=== PATIENT | male | born 1960 | race Caucasian/White ===

== ENCOUNTER 2019-06-23 14:50 | Day surgery (SDC) | payer MEDICARE, SELFPAY ==
[2019-06-18 13:16] VITALS: BMI 43.7
[2019-06-23] VITALS (8 sets, daily range): BP systolic 121–140; BP diastolic 81–98; PULSE 75–89; RESP 10–16; TEMP 36.2–36.8; O2SAT 94–98; BMI 43.0
--- NOTE | 2019-06-23 17:29 | SUR.PREOP ---
Explained delay to patient and apologized. Patient verbalizes understanding. This nurse retrieved Hydrocodone RX from pharmacy for patient and placed medication in safekeeping bag. Per surgeon, patient may take his home dose of gabapentin now since delay in surgery. Turned lights down for comfort, warm blanket provided and call light within reach. Instructed to call if any needs at this time.
--- NOTE | 2019-06-23 17:52 | PM.PREOP ---
Pre-operative Note Interval Note History & Physical reviewed/Exam performed by Physician: Yes Changes to H&P: No
--- NOTE | 2019-06-23 17:52 | PM.OP.1 ---
Operative Date/Time/Diagnoses Date of procedure: 06/23/19 Time of procedure: 19:08 Pre-op diagnosis: Internal derangement right knee Post-op diagnosis: other (Lateral meniscal tear right knee) Procedure & Clinicians Procedure: Right knee arthroscopy with partial lateral meniscectomy Same procedure as scheduled: Yes Indications: The patient presents today for right knee arthroscopy after failure of conservative treatment. The nature of the procedure including the risks and benefits, alternatives, postoperative course and expected outcome were discussed and all questions answered. Consent was obtained. Operative site confirmed and marked. Surgeon: Modesto Jose Click Yes if Unassisted: Yes Anesthesia Type: General and Local Operative Notes Findings: Examination under anesthesia was unremarkable. Arthroscopic evaluation revealed degenerative tearing of the anterior horn lateral meniscus. This was debrided to a stable rim with a shaver. The medial meniscus was pristine with no tearing. There was no significant chondromalacia in any of the compartments. Patellar tracking was normal. ACL and PCL were intact. No loose bodies or other abnormalities noted. Closure Type: primary Specimen(s): none sent Estimated Blood Loss (mL): 1 Blood products transfused: none Tourniquet time (min): 15 Procedure in detail: The patient was taken to the operative suite and given prophylactic antibiotics. Examination under anesthesia was performed. The leg was then prepped and draped in usual sterile fashion. The leg was exsanguinated with an Esmarch dressing and the tourniquet raised to 300 torr. The portal sites were anesthetized with 1% lidocaine with epinephrine and then established with an 11 blade. Medial and lateral parapatellar working portals were utilized. The scope was placed into the medial portal and into the lateral compartment of the knee. The knee was placed in the figure 4 position. The knee was then allowed to hang down at 90? and the notch evaluated. The knee was then extended and the scope switched to the lateral portal and placed up in the anterior compartment. The patellofemoral joint, medial gutter, lateral gutter and suprapatellar pouch were inspected. A valgus force was then placed across the knee over lateral stress post and the medial compartment was evaluated. See specific findings and procedures above. The arthroscopy was completed and the knee drained. The knee was filled with 30 mL of 0.5% ropivacaine and 4 of morphine. The portal sites were closed with Steri-Strips. A sterile gauze and Neil wrap dressing was applied. The patient tolerated procedure well and was returned to recovery room in good condition. Complications: none Post-operative Condition: stable Disposition: PACU Plan for aftercare: Discharge to home. Progress weight-bearing and activity as tolerated. May change dressing in 3-4 days period
[2019-06-23] MEDS: CEFAZOLIN 2 GM/100 ML FROZ.PIGGY IV (18:23)
--- NOTE | 2019-06-23 18:58 | SUR.OPER ---
Supine on padded OR bed, head on pillow, arms secured on padded arm boards at <90 degrees abduction, legs uncrossed, safety belt at thigh, tape over blanket over lower legs.
--- NOTE | 2019-06-23 18:58 | SUR.OPER ---
Supine on padded OR bed, head on pillow, arms secured on padded arm boards at <90 degrees abduction, legs uncrossed, safety belt at abdomen, tape over blanket over left lower leg, right leg in sterile field.
[2019-06-23] MEDS: ROPIVACAINE 0.5% PF 5 MG/ML 20ML VIAL 10 ML INJ (19:23)
[2019-06-23] MEDS: LIDOCAINE 1% W/EPI 20 ML INJ (19:23)
--- NOTE | 2019-06-23 20:17 | SUR.PHASEII ---
Patient discharged home with friend, Elio, in stable condiition. Patient ambulatory at discharge but patient wheeled to vehicle per protocol. Denies pain at discharge. All belongings returned to patient. VSS.
== END 2019-06-23 20:05 | disposition home or self-care (01) ==
PROVIDERS: PCP Family Medicine; Referring Provider Family Medicine; Visit Provider Orthopaedic Surgery
PROC: (CPT 29870; principal; 2019-06-23 16:45)
DX: S83.281A Other tear of lateral meniscus, current injury, right knee, initial encounter (principal); M17.12 Unilateral primary osteoarthritis, left knee
CPT/HCPCS: 29881; J0690; J2250; J2405; J2704; J3010

== ENCOUNTER → 2020-04-24 15:19 | Outpatient (CLI) | payer MEDICARE, SELFPAY ==
[2020-04-24 17:36] LABS: COVID19 -Nasal RAPID Negative (Negative)
== END ==
PROVIDERS: PCP Family Medicine; Visit Provider Physician Assistant
DX: Z11.59 Encounter for screening for other viral diseases (principal)
CPT/HCPCS: 87635

== ENCOUNTER 2020-04-26 06:17 | Day surgery (SDC) | payer MEDICARE, SELFPAY ==
[2020-04-24 11:49] VITALS: BMI 43.7
[2020-04-26] VITALS (16 sets, daily range): BP systolic 115–141; BP diastolic 73–99; PULSE 91–111; RESP 12–93; TEMP 35.9–36.7; O2SAT 16–96; BMI 43.7
[2020-04-26] MEDS: ACETAMINOPHEN 325 MG TABLET 975 MG PO (07:11)
[2020-04-26] MEDS: PREGABALIN 75 MG CAPSULE PO (07:13)
[2020-04-26] MEDS: CELECOXIB 200 MG CAPSULE PO (07:15)
[2020-04-26] MEDS: LACTATED RINGERS 1,000 ML 42 ML IV (07:30)
--- NOTE | 2020-04-26 07:30 | PM.PREOP ---
Pre-operative Note COVID-19 COVID-19 status: Negative Result date/Date tested (Pos, Neg/Pending): 04/24/20 Interval Note History & Physical reviewed/Exam performed by Physician: Yes Changes to H&P: No
--- NOTE | 2020-04-26 07:31 | P.OP_ITS ---
Operative Date/Time/Diagnoses Date of procedure: 04/26/20 Time of procedure: 08:51 Pre-op diagnosis: Left knee medial compartment osteoarthritis Post-op diagnosis: same Procedure & Clinicians Procedure: Left knee medial compartment arthroplasty Same procedure as scheduled: Yes Indications: The patient presents today for medial compartment knee arthroplasty after failure of conservative treatment. The nature of the procedure including the risks and benefits, alternatives, postoperative course and expected outcome were discussed and all questions answered. Consent was obtained. Operative site confirmed and marked. Surgeon: Modesto Jose Television Service Engineer: Donald Henderson Anesthesia Type: General and Local Operative Notes Closure Type: primary Specimen(s): none sent Prosthetic devices, grafts, tissues, transplants, or devices: George and nephew ZUK unicompartmental knee, D femur, 3 tibia and 10 mm polyethylene tray. Applied: implant(s) Estimated Blood Loss (mL): 5 Blood products transfused: none Tourniquet time (min): 45 Procedure in detail: The patient was taken to the operative suite and placed under general anesthesia. The patient received prophylactic antibiotics 1 g of IV tranexamic acid prior to surgery. The lateral aspect of the leg was prepped and the knee injected with 20 mL of 1% lidocaine with epinephrine. The leg was prepped and draped in usual sterile fashion. The leg was exsanguinated with an Esmarch dressing and the tourniquet raised to 250 torr. A 10 cm medial parapatellar incision and arthrotomy was then made. The anterior aspect of the fat pad and medial meniscus was resected. A small amount of anterior tibial boss was resected with a oscillating saw. The knee was then extended and the alignment guide placed. The distal femoral and proximal tibial cutting guides were then pinned into place. The distal femoral cut was made in extension. The proximal tibial cut was made in flexion. All remaining meniscus was excised. Gaps were checked with blocks. Soft tissues were then injected with a combination of 40 mL of quarter percent Marcaine with epinephrine, 20 mL of Exparel. The femur was sized and the appropriate cutting guide placed. The peg holes were drilled and chamfer cuts made. Next the tibia was sized and drilled. Trial components were then placed. The knee had good cheondoism of soft tissue tension without over correction. Range of motion was full. The trial components were removed. The knee was cleansed with Pulsavac irrigation and dried. The components were then cemented with high viscosity vacuum mixed bone cement. The knee was held in extension until the cement had adequately cured. The knee was then irrigated and inspected for any further debris. The extensor mechanism was closed at 90? of flexion with a few interrupted #1 Vicryl sutures and a running O V-LOC suture. The knee was then filled with 50 mL of solution containing 1 g of tranexamic acid and 10 mL of 0.5% Marcaine. The subcutaneous tissue was closed with 2-0 Vicryl. The skin was closed with a running 3 0 V-LOC suture and surgical adhesive. An Aquacel dressing was applied. The leg was then wrapped with an Neil which will be kept on for the first 24 hours. The patient tolerated the procedure well and was returned to recovery room in good condition. Complications: none Post-operative Condition: stable Disposition: PACU Plan for aftercare: Discharge to home. Start physical therapy within 1 week. Follow up in 2 weeks.
[2020-04-26] MEDS: CEFAZOLIN 2 GM/100 ML FROZ.PIGGY IV (07:49)
--- NOTE | 2020-04-26 07:50 | SUR.PREOP ---
Block start time 0740] . Monitoring initiated and maintained throughout procedure. Oxygen given and medications given by anesthesiologist. iPatient remained stable throughout procedure, no adverse reactions noted. Block end time [0745].
[2020-04-26] MEDS: LIDOCAINE 1% W/EPI 20 ML INJ (08:01)
[2020-04-26] MEDS: TRANEXAMIC ACID 1,000 MG VIAL 1000 MG IV (08:02)
--- NOTE | 2020-04-26 08:16 | SUR.OPER ---
Supine on padded OR bed. Pillow under head, arms secured on padded armboards <90 degree abduction. Safety belt across torso. Non-operative leg secured with tape over blanket over lower leg. Operative leg secured in DeMayo/Yann positioner. Foam padded brace at thigh of operative leg.
--- NOTE | 2020-04-26 08:16 | SUR.OPER ---
Gel bump under left hip
[2020-04-26] MEDS: BUPIVACAINE 0.5% W/ EPI (PF) 20 ML, BUPIVACAINE LIPOSOME 266 MG, SODIUM CHLORIDE 0.9% 2... INJ (08:20)
[2020-04-26] MEDS: BUPIVACAINE 0.5% W/ EPI (PF) 10 ML, TRANEXAMIC ACID 1,000 MG, SODIUM CHLORIDE 0.9% 20 ML INJ (08:21)
[2020-04-26] MEDS: SODIUM CHLORIDE IRRIG SOLUTION 250 ML, POVIDONE-IODINE SPONGE STICKS 1 APPLIC IRR (08:24)
--- NOTE | 2020-04-26 08:29 | P.PCN_ITS ---
Procedures Date/Time Date of procedure: 04/26/20 Time of procedure: 07:35 General Procedure description: Ultrasound guided adductor canal nerve block for post op pain control after left medial uni-compartment knee arthroplasty by Dr. Quach [facility]. Risk and benefits of procedure discussed with patient. ASA monitoring applied to patient. O2 given via nasal cannula. 1 mg Versed and 50 mcg fentanyl given for procedural sedation. Skin site was prepped with chlorhexidine and allowed to fully dry. Sterile gloves, mask, hat and probe cover were used to maintain sterility. 2% lidocaine and 30ga needle was used to make a small skin wheal at needle insertion site. Under ultrasound guidance, a 21ga 100mm Pajunk needle was directed into the adductor canal near femoral artery and saphenous nerve at the level of mid thigh. Patient reported no parasthesias. After negative aspiration, 20 mL 0.5% ropivicaine and 10mg dexamethasone were injected around saphenous nerve. Patient tolerated procedure well.
[2020-04-26] MEDS: OXYCODONE/ACETAMINOPHEN 5/325 TABLET 1 TAB PO ×2 (09:19→09:53)
[2020-04-26] MEDS: HYDROMORPHONE 2 MG INJ IV (09:37)
--- NOTE | 2020-04-26 11:02 | SUR.PHASEII ---
1055 Discharge teaching and VS by Anjelica Camacho RN. Pt stable and comfortable, pleasant and voiced appreciation to myself for current and previous care during a prior admission. Friend picked up walker on the way here. No questions/concerns. Stable on feet.
== END 2020-04-26 10:55 | disposition home or self-care (01) ==
PROVIDERS: PCP Family Medicine; Referring Provider Family Medicine; Visit Provider Orthopaedic Surgery
PROC: (CPT 27446; principal; 2020-04-26 07:45)
DX: M17.12 Unilateral primary osteoarthritis, left knee (principal); I10 Essential (primary) hypertension; E11.9 Type 2 diabetes mellitus without complications; Z79.4 Long term (current) use of insulin
CPT/HCPCS: 27446; 64450; 82962; C1776; C9290; J0690; J1100; J1170; J2250; J2405; J2704; J3010